=== PATIENT | male | born 1995 | race African-American/Black ===

== ENCOUNTER 2024-08-24 16:29 | Emergency (ER) | payer OTHER ==
[~2024-08-24] VITALS: Ht 175.3 cm; Wt 93.2 kg
[2024-08-24] MEDS ORDERED: VANCOMYCIN 1.25 GM/WATER(PEG) 250 ML IV ONE (17:00)
[2024-08-24 17:24] LABS: BASOPHILS % (AUTO) 0.9 % (0.0-2.0); EOSINOPHILS % (AUTO) 1.6 % (1.0-6.0); HEMATOCRIT 42.3 % (41-53); HEMOGLOBIN 13.9 g/dL (13.5-17.5); LYMPHOCYTES # (AUTO) 1.5 K/uL (1.0-4.8); LYMPHOCYTES % (AUTO) 19.1 % (22.0-44.0); MEAN CORPUSCULAR HEMOGLOBIN 28.8 pg (26.0-34.0); MEAN CORPUSCULAR HGB CONC 32.9 G/dL (31.0-37.0); MEAN CORPUSCULAR VOLUME 88 fL (80-100); MONOCYTES # (AUTO) 0.8 K/uL (0.1-1.0); MONOCYTES % (AUTO) 10.5 % (2.0-9.0); NEUTROPHILS # (AUTO) 5.4 K/uL (1.8-7.7); NEUTROPHILS % (AUTO) 67.9 % (40.0-70.0); PLATELET COUNT (AUTO) 174 K/uL (150-450); RED BLOOD CELL COUNT(AUTO) 4.83 MIL/uL (4.50-5.90); WHITE BLOOD COUNT (AUTO) 7.9 K/uL (4.5-11.0)
[2024-08-24 17:32] LABS: ANION GAP 10 mmol/L (8-16); CALCIUM, TOTAL 9.4 mg/dL (8.8-10.5); CARBON DIOXIDE 30 mmol/L (22-29); CHLORIDE 101 mmol/L (98-107); CREATININE 1.03 mg/dL (0.60-1.30); GLOMERULAR FILTR. RATE CALC > 60 mL/min (>60); GLUCOSE,RANDOM 90 mg/dL (70-110); POTASSIUM 3.8 mmol/L (3.5-5.1); SODIUM SERUM 141 mmol/L (136-145); UREA NITROGEN, BLOOD 10 mg/dL (7-18)
[2024-08-24 17:38] LABS: ALBUMIN 4.2 g/dL (3.4-5.0); BILIRUBIN,DIRECT 0.3 mg/dL (0.00-0.20); BILIRUBIN,TOTAL 1.5 mg/dL (0.1-1.0); TOTAL PROTEIN, SERUM 8.1 g/dL (6.4-8.2)
[2024-08-24 17:41] LABS: LACTIC ACID 1.9 mmol/L (0.4-2.0)
[2024-08-24] MEDS ORDERED: IOHEXOL 350 MG/ML 100 ML VIAL ONE (17:46)
[2024-08-24] MEDS ORDERED: SODIUM CHLORIDE 0.9% 100 ML ONE (17:46)
[2024-08-24] MEDS ORDERED: 0.9% SODIUM CHLORIDE 10 ML SYRINGE IVP ONE (17:46)
[2024-08-24 18:07] VITALS: TEMP 98.4
[2024-08-24] MEDS: MORPHINE SULFATE 2 MG/ML SYRINGE IVP ONE (18:29)
[2024-08-24] MEDS: ACETAMINOPHEN 500 MG TABLET PO ONE (18:29)
[2024-08-24] MEDS: VANCOMYCIN HCL 1.25 GM in DEXTROSE 5%-WATER 250 ML IV ONE (18:30)
[2024-08-24] MEDS: CEFEPIME HCL 2 GM in DEXTROSE 5%-WATER 50 ML IV ONE (18:30)
[2024-08-24] MEDS: SODIUM CHLORIDE 0.9% 1,000 ML IV ONE (18:30)
[2024-08-24 19:53] VITALS: BP 137/76; PULSE 64; RESP 18; O2SAT 99
[2024-08-24] MEDS: LIDOCAINE 1% 10 ML VIAL SQ ONE (20:26)
== END 2024-08-24 21:30 ==
LOC: EMS 16:48
DX: H60.02 Abscess of left external ear (principal)
CPT/HCPCS: 99285; 70481; 10160; 96365; 96375; 80048; 80076; 87205; 83605; 85025; 87040; 36415; 70487; 87070; 96368; Q9967; J3370; J0692; J2270; J3490; J7060 ×2; J7030; J7050